=== PATIENT | male | born 1965 | race Caucasian/White ===

== ENCOUNTER 2024-03-13 05:38 | Day surgery (SDC) | payer OTHER ==
[2024-03-13] VITALS (10 sets, daily range): BP systolic 111–137; BP diastolic 64–88; PULSE 57–68; RESP 15–17; TEMP 96.6–97.8
[~2024-03-13] VITALS: Ht 175.3 cm; Wt 117.9 kg
[~2024-03-13 05:38] MED LIST: AMLO-257 PO; LOSA100T59 PO
[2024-03-13] MEDS ORDERED: 0.9%NACL 1000ML 1,000 ML IV ONE (06:50)
[2024-03-13] MEDS: 0.9%NACL 1000ML 1,000 ML IV ONE (07:03)
[2024-03-13] MEDS ORDERED: proPOFol 10 MG/ML 20ML VIAL IV ONE ×2 (08:17)
--- NOTE | 2024-03-13 09:36 | NUR ---
PER KRYSTAL/JONATHON CINTRON WILL ORDER GOLYTLY TO PHARMACY.
== END 2024-03-13 09:41 | disposition home or self-care (01) ==
LOC: DAH 05:38
PROVIDERS: ATTEND Internal Medicine Gastroenterology
DX: Z12.11 Encounter for screening for malignant neoplasm of colon (principal); D50.9 Iron deficiency anemia, unspecified; D12.2 Benign neoplasm of ascending colon; D12.8 Benign neoplasm of rectum; K57.30 Diverticulosis of large intestine without perforation or abscess without bleeding; I10 Essential (primary) hypertension; Z98.890 Other specified postprocedural states; Z79.899 Other long term (current) drug therapy
CPT/HCPCS: 45380; 45385; J7030; J2704 ×2; A4615; A4215; A4223; A4222; A4221; A4663; A4606; J3490

== ENCOUNTER 2024-10-24 22:14 | Emergency (ER) | payer OTHER ==
[~2024-10-24] VITALS: Ht 175.3 cm; Wt 109.3 kg
[2024-10-24] MEDS: hydrALAZine 20MG/ML VIAL IV ONE (23:05)
[2024-10-24 23:17] LABS: BASOPHILS # (AUTO) 0.13 K/uL (0.00-0.20); BASOPHILS % (AUTO) 1.5 % (0.0-5.0); EOSINOPHILS # (AUTO) 0.25 K/uL (0.00-0.70); EOSINOPHILS % (AUTO) 2.9 % (0.0-8.0); HEMATOCRIT 48.4 % (42-54); IMMATURE GRANULOCYTE ABSOLUTE 0.03 K/uL (0-1); LYMPHOCYTES # (AUTO) 2.3 K/uL (1.0-4.8); MEAN CORPUSCULAR HEMOGLOBIN 27.5 pg (27.0-33.0); MEAN CORPUSCULAR HGB CONC 33.1 g/dL (32.0-36.0); MEAN CORPUSCULAR VOLUME 83.3 fL (79-99); MONOCYTES # (AUTO) 1.2 K/uL (0.1-1.0); MONOCYTES % (AUTO) 13.6 % (3.0-13.0); NEUTROPHILS # (AUTO) 4.7 K/uL (1.8-7.7); NEUTROPHILS % (AUTO) 54.7 % (40.0-77.0); PLATELET COUNT (AUTO) 263 K/uL (130-400); RED BLOOD CELL COUNT(AUTO) 5.81 MIL/uL (4.50-6.20); RED CELL DISTRIBUTION WIDTH 13.1 % (11.0-15.5); WHITE BLOOD COUNT (AUTO) 8.6 K/uL (4.8-10.8)
[2024-10-24 23:26] LABS: CREATININE 1.1 mg/dL (0.5-1.3); POTASSIUM 3.7 mmol/L (3.5-5.1)
--- NOTE | 2024-10-24 23:47 | ERN ---
ED Note History of Present Illness Stated Complaint: C/O HIGH B/P Chief Complaint: Hypertension Time Seen by MD: 22:20 Dictation: This is a 59-year-old male who is morbidly obese known history of hypertension presented to the emergency room stating that he has blood pressure was very high and he also felt weird today around 430 or 5:00 p.m. when he was at work. He stated that he forgot to take his medications for blood pressure this morning so he took them as soon as he came back to work when he checked his blood pressure it was 190s over 100s. He stated that he felt like a brain fog. No blurred vision diplopia motor weakness facial droop or seizure activity no headache Temperature 97.8 pulse 70 respirations 20 blood pressure 194/107 with a pulse oximetry of 96% on room air Allergies: Coded Allergies: lorazepam (Unverified Allergy, Unknown, 10/24/24) Home Meds Reported Medications Amlodipine Besylate (Amlodipine Besylate) 5 Mg Tablet, 1 TAB PO DAILY for 30 Days, #30 TAB 0 Refills 03/12/24 Losartan Potassium (Losartan Potassium) 100 Mg Tablet, 1 TAB PO DAILY for 30 Days, #30 TAB 0 Refills 03/12/24 Past Medical History Past Medical History: Hypertension Surgical History: Unknown Family History: Negative Social History: ETOH (Occasional social) RN Note Reviewed/Agreed w/PFSH: Yes Review of System Dictation Constitutional: Negative for fever,chills, and weight loss Eyes: Negative for injury, pain,redness, and discharge ENT: Negative for injury,pain or swelling Cardiovascular: Negative for chest pain, palpitations, and edema Respiratory: Negative for shortness of breath, cough, and wheezing, Abdomen/GI: Negative for abdominal pain, nausea, vomiting, diarrhea, and constipation Back: Negative for injury and pain : Negative for injury, bleeding and discharge MS/Extremity: Negative for injury and deformity Skin: Negative for rash, and discoloration Neuro: Negative for headache, weakness, numbness, tingling, and seizure Psych: Negative for suicide ideation, homicidal ideation, and hallucinations Initial Vital Sign VS Vital Signs Date Time Temp Pulse Resp B/P (MAP) Pulse Ox O2 Delivery O2 Flow Rate FiO2 10/24/24 22:16 97.9 70 20 194/107 96 Room Air 6/11/25 23:15 0 21 Physical Exam Dictation General: awake, alert, NAD morbidly obese Head/Face: Normocephalic, atraumatic Eyes: PERRL, EOMI, vision at baseline ENT: oral cavity clear, TMs clear, no signs of infection Mallampati 4 Neck: Trachea midline, supple, no nuchal rigidity short thick neck-collared size 18 or more Cardiovascular: RRR, normal S1/S2, No MRGs, no JVD Respiratory: CTAB, no respiratory distress, No rales or wheezes Abdomen: Soft, non-tender, non-distended, normal bowel sounds, no guarding or rebound. Skin: Warm, dry, normal turgor, no rash MS/Extremity: Pulses equal, no cyanosis, neurovascular intact, FROM Neuro: COAx4, GCS 15, strength 5/5, CN 2-12 intact, normal cerebellar exam, normal gait, Psych: Normal behavior, mood, and affect normal Extremities-trace edema without any palpable cords, Homans sign is negative Results (Laboratory/Radiology) Laboratory/Radiology Laboratory Tests Test 10/24/24 23:04 10/25/24 00:00 White Blood Count 8.6 K/uL (4.8-10.8) Red Blood Count 5.81 MIL/uL (4.50-6.20) Hemoglobin 16.0 g/dL (14.0-18.0) Hematocrit 48.4 % (42-54) Mean Corpuscular Volume 83.3 fL (79-99) Mean Corpuscular Hemoglobin 27.5 pg (27.0-33.0) Mean Corpuscular Hemoglobin Concent 33.1 g/dL (32.0-36.0) Red Cell Distribution Width 13.1 % (11.0-15.5) Platelet Count 263 K/uL (130-400) Mean Platelet Volume 11.3 fL (7.5-10.5) H Immature Granulocyte % (Auto) 0.3 % (0-1) Neutrophils (%) (Auto) 54.7 % (40.0-77.0) Lymphocytes (%) (Auto) 27.0 % (21.0-51.0) Monocytes (%) (Auto) 13.6 % (3.0-13.0) H Eosinophils (%) (Auto) 2.9 % (0.0-8.0) Basophils (%) (Auto) 1.5 % (0.0-5.0) Neutrophils # (Auto) 4.7 K/uL (1.8-7.7) Lymphocytes # (Auto) 2.3 K/uL (1.0-4.8) Monocytes # (Auto) 1.2 K/uL (0.1-1.0) H Eosinophils # (Auto) 0.25 K/uL (0.00-0.70) Basophils # (Auto) 0.13 K/uL (0.00-0.20) Absolute Immature Granulocyte (auto 0.03 K/uL (0-1) Nucleated Red Blood Cells 0.0 % (0.0-0.19) Sodium Level 141 mmol/L (136-145) Potassium Level 3.7 mmol/L (3.5-5.1) Chloride Level 104 mmol/L (101-111) Carbon Dioxide Level 31 mmol/L (21-32) Blood Urea Nitrogen 17 mg/dL (7-18) Creatinine 1.1 mg/dL (0.5-1.3) Glomerular Filtration Rate Calc 76 mL/min (>90) Random Glucose 113 mg/dL (70-105) H Total Calcium 8.7 mg/dL (8.5-10.1) Total Creatine Kinase 129 U/L (21-232) Troponin I High Sensitivity 11.3 ng/L (4-75) B-Type Natriuretic Peptide 32 pg/mL (0-100) Urine Color LIGHT-YELLOW (YELLOW) Urine Appearance CLEAR (CLEAR) Urine pH 6.0 (5.0-8.0) Urine Specific [place] 1.011 (1.001-1.031) Urine Protein NEGATIVE mg/dL (NEGATIVE) Urine Glucose (UA) NEGATIVE mg/dL (NEGATIVE) Urine Ketones NEGATIVE mg/dL (NEGATIVE) Urine Occult Blood NEGATIVE (NEGATIVE) Urine Nitrate NEGATIVE (NEGATIVE) Urine Bilirubin NEGATIVE mg/dL (NEGATIVE) Urine Urobilinogen 0.2 mg/dL (0.2-1.0) Urine Leukocyte Esterase 25 Cat/uL (NEGATIVE) H Urine RBC 0-1 /HPF (0-1) Urine WBC 2-5 /HPF (0-1) H Urine Bacteria None /HPF (None Seen) Labs Reviewed?: Yes ED Course ED Course Orders Procedure Category Date Status Time Hydralazine 20mg Inj PHA 10/24/24 Complete (Apresoline 20mg In 23:00 Cbc With Differential LAB 10/24/24 Complete 22:40 B-Type Natriuretic LAB 10/24/24 Complete Peptide 22:40 Cardiac Panel LAB 10/24/24 Complete 22:40 Chest 1vw RAD 10/24/24 Taken 22:40 12 Lead Ekg Tracing- EKG 10/24/24 Logged Technical 22:40 Basic Metabolic Panel LAB 10/24/24 Complete 22:40 Urinalysis Profile LAB 10/24/24 Complete 22:40 Current Medications Medications (Trade) Dose Ordered Sig/Dominga Route PRN Reason Start Time Stop Time Status Last Admin Dose Admin Hydralazine HCl (APRESOLine 20MG INJ) 10 mg ONCE ONCE IV 10/24/24 23:00 10/24/24 23:01 DC 10/24/24 23:05 Vital Signs Date Time Temp Pulse Resp B/P (MAP) Pulse Ox O2 Delivery O2 Flow Rate FiO2 10/25/24 00:00 98.8 75 18 136/91 96 Room Air* 0 21 10/24/24 23:15 98.8 88 18 185/65 99 Room Air* 0 21 10/24/24 22:16 97.9 70 20 194/107 96 Room Air We will perform diagnostic labs, advanced imaging and administer medications according to the patient's complaint. Once the results are available, will review and personally interpreted the labs to rule out any acute life- threatening emergency the trach require immediate intervention and treatment. I will then re-evaluate the patient after treatment and diagnostic exams have return to determine whether the patient requires any further testing, can safely be discharged home or need further admission to hospital for additional treatment and evaluation. CBC is with a normal limits BNP 7 is normal brain natriuretic peptide is 32 troponins are negative urinalysis is unremarkable. Chest x-ray does not show any acute infiltrates or florid congestive heart failure. I had a long discussion with him and his daughter about compliance with medications, weight loss diet and exercise and lifestyle modifications. His blood pressure is much improved. He indicated that his blood pressure is poorly controlled despite amlodipine and lisinopril and I educated him that with a obesity and large neck size and a Mallampati score of 4, he likely has a untreated sleep disorder that could be contributing to his poor blood pressure control. I instructed him to follow up with his primary care physician and pursue outpatient sleep study . He verbalized full understanding Medical Decision Making MDM MDM: Differential diagnosis: Uncontrolled hypertension, hypertensive urgency, hypertensive encephalopathy, malignant hypertension, hypertensive emergency Rationale: Tests considered and ordered secondary to shared decision making include: Previous outside records reviewed: Old ER visits. Risk of complication and/or morbidity or mortality of patient management: None Medications-Per medication reconciliation Need for hospitalization: Patient does not meet criteria for hospitalization. Need for emergency major/minor surgery: No There are no social concerns with this patient. Prescription drug management Prescriptions will include symptomatic care Patient's prior external medical records from other ER visits were reviewed by me as indicated. Prior testing and results from previous visits were reviewed. Prior tests were taken into account with medical decision making and resource utilization, independent historian/historians were used to obtain complete medical history. I independently interpreted the test that were performed, results were reviewed by me and considered findings on radiology if ordered. Medical management and examination interpretation discussions were had by me with other qualified healthcare professionals as indicated for the patient's care. Problem List Problem List: (1) Hypertensive urgency (2) LILLIAM (obstructive sleep apnea) (3) Morbid obesity DX & DISP Disposition: Discharge Departure Impression: Primary Impression: Hypertensive urgency Additional Impressions: Morbid obesity, LILLIAM (obstructive sleep apnea) Condition: Stable Additional Instructions: Patient and the caregiver have been informed of all the diagnostic tests and the imaging conducted during the today's visit to the emergency room and has verbalized understanding of the results I have personally reviewed and inte rpreted all diagnostic exams performed here in the ER today as well as the vital signs documented by the nursing staff. The patient is now being discharged to home and should follow up with the primary care physician or the specialist as directed by the ER staff. Follow-up with primary care provider in 1 to 2 days. Take medications as directed here in the emergency room. Okay to continue home medications unless otherwise discussed during your visit in the emergency room today. Return to your nearest emergency room if symptoms worsen or if there is no improvement. Call 911 if you need immediate assistance. Take Tylenol or Motrin [id number] as needed and if no contraindications are present. Increase oral hydration. A wound culture or urine culture was ordered here in the emergency room department please follow-up with primary care provider and advise them to get repeat ports from our facility. If you had any Angel wrap/splints that were applied here, please do not remove them until you see your primary care or specialty. I have instructed him to follow up with his primary care physician and also pursue a sleep study and to be evaluated for LILLIAM due to his poor control of the blood pressure. Referrals: SELF,REFERRAL (PCP) ANGELINA KHAN MD Oct 24, 2024 23:47
[2024-10-24 23:54] LABS: B-TYPE NATRIURETIC PEPTIDE 32 pg/mL (0-100)
[2024-10-25] VITALS: BP 136/91; PULSE 75; RESP 18; TEMP 98.7; O2SAT 96
[2024-10-25 00:11] LABS: APPEARANCE,URINE CLEAR (CLEAR); BILIRUBIN,URINE NEGATIVE (NEGATIVE); COLOR,URINE LIGHT-YELLOW (YELLOW); GLUCOSE, URINE (UA) NEGATIVE (NEGATIVE); KETONES,URINE NEGATIVE (NEGATIVE); LEUKOCYTE ESTERASE ,URINE 25 Leu/uL (NEGATIVE); NITRATE,URINE NEGATIVE (NEGATIVE); OCCULT BLOOD,URINE NEGATIVE (NEGATIVE); PROTEIN,URINE NEGATIVE (NEGATIVE); UROBILINOGEN,URINE 0.2 mg/dL (0.2-1.0)
[2024-10-25 00:17] LABS: ADD UA MICROSCOPIC YES
[2024-10-25 00:18] LABS: MUCUS,URINE RARE LPF (None Seen); RBC,URINE 0-1 /HPF (0-1)
--- NOTE | 2024-10-25 06:36 | EKG ---
[facility] Test Date: 2024-10-24 Test Time: 23:25:33 Pat Name: BAL WAITE Department: ED Room: Gender: M Retort Loader: [id number] : 1965 Requested By: ANGELINA HKAN Order Number: [id number] Reading MD: Ngoc Quiroz Measurements Intervals [place] Rate: 80 P: 37 PA: 149 QRS: 5 QRSD: 102 T: 54 QT: 389 QTc: 449 Interpretive Statements Sinus rhythm Nonspecific T abnormalities, lateral leads No previous ECG available for comparison Electronically Signed On 10-25-2024 09:10:47 CDT by Ngoc Quiroz Please click the below link to view image of tracing.
--- NOTE | 2024-10-25 08:43 | HMCIMG ---
Exam Type: CHEST 1VW Clinical Information: Dyspnea/SOB Comparison: None Findings: The lungs are clear of infiltrates. The heart is normal in size. The bony and soft tissue structures of the chest are unremarkable. Impression: Clear lungs.
== END 2024-10-25 00:45 | disposition home or self-care (01) ==
LOC: EDH 22:14
DX: I16.0 Hypertensive urgency (principal); G47.33 Obstructive sleep apnea (adult) (pediatric); E66.01 Morbid (severe) obesity due to excess calories; I10 Essential (primary) hypertension; Z79.899 Other long term (current) drug therapy
CPT/HCPCS: 99285; 96374; 71045; 82550; 84484; 80048; 83880; 85025; 81001; 36415; 93005; J0360